=== PATIENT | male | born 1970 | race Caucasian/White ===

== ENCOUNTER 2016-10-12 11:20 | Inpatient (IN) | payer BC ==
--- NOTE | ~2016-10-12 | HP ---
History And Physical [address] [place]. [address] NAME: SAMANTHA DELACRUZ : 72 STATUS : ADM IN PAT#: [id number] AGE: 46 ADM/REG DATE : 10/12/16 MR#: [id number] REPORT SERV DATE: 10/12/16 DICTATED BY: JARON CLAIRE DATE: 10/12/16 REPORT STATUS : Draft TRANSCRIBED BY: MODL DATE: 10/12/16 DATE OF ADMISSION: 10/12/2016 INDICATION: Heart failure. HISTORY: The patient is a 46-year-old white male with an underlying dilated cardiomyopathy who began to experience increasing shortness of breath, edema, and chest discomfort. He presented to the emergency room for further evaluation and therapy. CURRENT HOME MEDICATIONS: Bumex 4 mg b.i.d., carvedilol 6.25 b.i.d., dobutamine drip, furosemide 40 b.i.d., oxycodone 15 four times a day, oxymorphone 20 q.12, potassium 20 b.i.d. ALLERGIES OR INTOLERANCES: Pregabalin. SOCIAL HISTORY: . Previous history of tobacco use. Negative for alcohol use. FAMILY HISTORY: Negative for coronary artery disease at young age. PAST MEDICAL HISTORY/REVIEW OF SYSTEMS: Positive for contrast-induced nephropathy with a history of acute renal failure, presently with reasonable renal function. He has a history of peripheral neuropathy and chronic pain. He has a bicuspid aortic valve and he has a history of bacterial endocarditis. He has a history of spinal stenosis. He underwent aortic root replacement on 01/10/[address] Conn with a 26 mm [employer] homograft. He also had tricuspid repair at that time with an annuloplasty ring. Postoperatively, he was given a diagnosis of diabetes mellitus, although he is not taking any antidiabetic medication at this time. Apparently at the time of his tricuspid valve annuloplasty, he had a closure of VSD. He had a single-lead pacemaker implanted on 08/30/[address] Garsia. He has been on chronic dobutamine infusion for the past several years, managed by Dr. Campbell. Recently, he was evaluated at [facility]. The results of that evaluation are not clear, although the patient states they were going to add some additional leads to his defibrillator and try to get him off his chronic dobutamine infusion. He has not been evaluated at [facility] that he is aware of. PHYSICAL EXAMINATION: GENERAL: A 46-year-old white male. VITAL SIGNS: Blood pressure 120/69, pulse 69 and regular, respirations 32. SKIN: No xanthelasmas. HEENT: JVD is elevated. CHEST: There are basilar crackles. CARDIAC: S1 normal, S2 singular, soft S3. ABDOMEN: Without tenderness. EXTREMITIES: +2 edema. History And Physical [address] [address] NAME: SAMANTHA DELACRUZ : 72 STATUS : ADM IN [facility]#: [id number] AGE: 46 ADM/REG DATE : 10/12/16 MR#: [id number] REPORT SERV DATE: 10/12/16 DICTATED BY: JARON CLAIRE DATE: 10/12/16 REPORT STATUS : Draft TRANSCRIBED BY: MODL DATE: 10/12/16 NEUROLOGIC: No focal deficits. LABORATORY VALUES: BUN 22, creatinine 1.13. Troponin is 0.3, although he has evidence of chronically elevated troponins throughout the last several years with levels running in the 0.2 range. His BNP is 1618, which is higher than usual, although in 2009, he had levels at 1831. White count 6.9, hemoglobin 14.2, platelets 76,000. Baseline ECG shows sinus rhythm with a left bundle branch block pattern. No acute repolarization changes present. IMPRESSION: A 46-year-old white male with nonischemic cardiomyopathy and acute on chronic systolic failure. The elevation in troponin is likely due to demand ischemia. He will be admitted for further therapy, diuresis, and at this time, we will try to sort through the [facility] evaluation. Note that in 2012, his QRS duration was only 112 msec, whereas on 10/12/2016, it was read out at 176 msec. DW/MODL Jaron Claire M.D. / [id number] CC: Jaron Claire M.D. [facility]
--- NOTE | ~2016-10-12 | CN ---
Consultation Report [facility] [address] [place]. [address] NAME: SAMANTHA DELACRUZ : 72 STATUS : ADM IN [facility]#: [id number] AGE: 46 ADM/REG DATE : 10/12/16 MR#: [id number] REPORT SERV DATE: 10/15/16 DICTATED BY: MYRIAM CESPEDES II DATE: 10/15/16 REPORT STATUS : Draft TRANSCRIBED BY: SOPHIA DATE: 10/15/16 CONSULTATION DATE OF CONSULTATION: 10/15/2016 CHIEF COMPLAINT: Low back pain. 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 He is unsure if it seeded his lumbar spine, but nevertheless he is reporting a severe history of low back pain which is worsening. It wake him up from his sleep. He recently had an MRI done at [facility] in [place], [place]. He reports some radiating pain in the buttocks and legs. PAST MEDICAL HISTORY: History of cardiomyopathy with ICD placement. He also had aortic root replacement. He also has a history of diabetes. REVIEW OF SYSTEMS: Noncontributory. MEDICATIONS: Please see the [facility] for his list. PHYSICAL EXAMINATION: GENERAL: Reveals a gentleman in no acute distress. He is awake, alert, oriented. NECK: Supple. CHEST: Reveals no stridor on inspiration or expiration. CARDIOVASCULAR: Regular rate and rhythm when I palpate the radial pulse. ABDOMEN: Soft. EXTREMITIES: He does have significant edema in the lower extremities. BACK: Reveals no scars, deformities, or masses. IMPRESSION AND PLAN: Low back pain which is significantly worsening. He has had a recent MRI in [place]. We will try and obtain this and have it pushed to the [facility]. Given his hospitalization situation, I suspect he will need outpatient followup for potential further definitive care. Although he is not the ideal surgical candidate obviously, but he is in severe pain and appears legitimate in that detection of his pain. HERNAN/SOPHIA Myriam Cespedes II, M.D. Consultation Report [facility] [address] [place]. [address] NAME: SAMANTHA DELACRUZ : 72 STATUS : ADM IN PAT#: [id number] AGE: 46 ADM/REG DATE : 10/12/16 MR#: [id number] REPORT SERV DATE: 10/15/16 DICTATED BY: MYRIAM CESPEDES II DATE: 10/15/16 REPORT STATUS : Draft TRANSCRIBED BY: MODL DATE: 10/15/16 / [id number] CC: Jaron Claire M.D.
--- NOTE | ~2016-10-12 | DS ---
Discharge Summary [facility] [address] [place]. [address] NAME: SAMANTHA DELACRUZ : 72 STATUS : DIS IN PAT#: [id number] AGE: 46 ADM/REG DATE : 10/12/16 MR#: [id number] REPORT SERV DATE: 10/31/16 DICTATED BY: BAKARITANNER KOREY DATE: 10/30/16 REPORT STATUS : Draft TRANSCRIBED BY: MODAdolfo DATE: 10/30/16 Data Collection from hospitalization DISCHARGE DIAGNOSES: 1. Congestive heart failure. 2. Ventricular fibrillation. 3. Chronic kidney disease. 4. Diabetes. 5. Chronic obstructive pulmonary disease. 6. Former tobacco use. 7. Peripheral neuropathy. 8. History of cardiomyopathy with ICD placement. CONSULTATIONS: Dr. David Cespedes, Dr. Korey Das. PROCEDURES PERFORMED: 1. ICD implantation, 10/14/2016. 2. CT scan of the abdomen and pelvis without contrast, 10/23/2016. 3. Overnight oximetry study, 10/16/2016. MEDICATIONS: Pacerone as instructed, aspirin 324 mg daily, Coreg 12.5 mg twice a day, Roxicodone 15 mg four times a day, Opana ER 20 mg every 12 hours, Klor-Con 20 mEq twice a day, and Demadex 50 mg daily. CONDITION AT DISCHARGE: Stable. DISPOSITION: The patient was discharged home on a low-sodium, soft diet with 2500 mL fluid restriction and activities as instructed. He would follow up with Dr. Osei Seaman, 11/07/2016. He would follow up with Dr. Juice Bernardo as instructed. He would follow up in the [facility] in [place], 11/20/2016 and would undergo an outpatient sleep study as instructed. HOSPITAL COURSE: This is a 46-year-old man, who has underlying dilated cardiomyopathy. He began to experience increasing shortness of breath, edema, and chest discomfort. He presented to the emergency room at this time. Creatinine level was 1.13, troponin was 0.3, although he does have evidence of chronically elevated troponins over the past several years with levels running in the 0.2 range. Baseline ECG showed sinus rhythm with left bundle- branch block pattern. No acute repolarization changes were present. He was admitted to the hospital at this time for further evaluation and treatment. Upon admission, the patient was felt to have nonischemic cardiomyopathy with acute-on- chronic systolic failure. The risks and benefits of extracting the ICD lead were discussed with upgrade to a biventricular ICD. The patient agreed to proceed. On 10/14/2016, the patient was taken to the operating room, where he underwent the above-mentioned procedure. He tolerated this well and there were no complications. A PICC line was inserted. Postop device check was performed and all measurements were within normal limits. On the , slow diuresis was being performed. He did have some back pain. He was still slightly overloaded. Creatinine was 2.41. Diuresis continued. He was seen in consultation by Dr. Brandon La [address] [address] NAME: SAMANTHA DELACRUZ : 72 STATUS : DIS IN PAT#: [id number] AGE: 46 ADM/REG DATE : 10/12/16 MR#: [id number] REPORT SERV DATE: 10/31/16 DICTATED BY: TANNER CLAIRE DATE: 10/30/16 REPORT STATUS : Draft TRANSCRIBED BY: SOPHIA DATE: 10/30/16 David Cespedes regarding his low back pain. The patient reports having a history of a severe blood infection. He was unsure if it seeded his lumbar spine, but nevertheless he reports a severe history of low back pain, which was worsening. It wakes him up from sleep. He recently had an MRI performed at [facility] in [place], [place]. He did report some pain radiating into the buttocks and legs. We were going to try and obtain the MRI. Given his hospitalization situation, it was suspected that he would need outpatient followup for potential further definitive care, although he is not an ideal surgical candidate obviously, but he is in severe pain and it appears legitimate in that detection of his pain. On 10/16/2016, he still had some back and lower extremity pain. He still had some fluid overload. Creatinine was 2.31. An overnight oximetry study was performed. He has an ejection fraction of 15%. He was felt to have systolic and diastolic congestive heart failure exacerbation. Bumex drip continued. On the , he still complained of back and leg pain. Diuresis continued. On the , his diuretics were held. The patient does have a painful periumbilical hernia. He had some hypokalemia. [employer] device check was performed and there was normal device function. On 10/22/2016, he was seen by Dr. Korey Das. The patient does have a small umbilical hernia. A CT scan of the abdomen and pelvis without contrast was requested. Discharge planning was performed. Fluid repletion was performed. Creatinine was 3.18. On 10/23/2016, he was alert and cooperative. Creatinine was 2.67. Discharge instructions were given. A CT scan of the abdomen and pelvis without contrast had been performed. Due to his improved and stable condition, he was discharged home with the above-stated instructions. Information collected by: Yaneth Keita I submit the above information as my discharge summary. TG/MODL Tanner Claire M.D. / [id number] CC: Rosa Serrano II, M.D. John Gwin Jr., M.D.
--- NOTE | ~2016-10-12 | PUL ---
[address] [place]. [address] NAME: SAMANTHA DELACRUZ : 72 STATUS : ADM IN [facility]#: [id number] AGE: 46 ADM/REG DATE : 10/12/16 MR#: [id number] REPORT SERV DATE: 10/18/16 DICTATED BY: SONIA RODRIGUEZ IV DATE: 10/17/16 REPORT STATUS : Draft TRANSCRIBED BY: MODL DATE: 10/17/16 PULMONARY FUNCTION TEST OVERNIGHT OXIMETRY. FINDINGS: Study is performed on room air. Four hours and 58 minutes of data available for review. The mean oxygen saturation was 89%. The lowest scored saturation is 75%. There were several periods of loss of data collection. The patient spent one hour and 42 minutes with oxygen saturations less than 88%. There was a pattern of oxygen saturation variation of sawtooth pattern that varied by significantly more than 4% that occurred throughout the study. IMPRESSION: Severe nocturnal hypoxemia on room air. There is a pattern consistent with obstructive sleep apnea that would be very severe based on a desaturation index of 75 per hour. Because of the low mean oxygen saturation, I would suggest placing the patient on 2 L of supplemental oxygen and obtaining a formal polysomnography as soon as possible. CHELSEY/SOPHIA Sonia Rodriguez IV, M.D. / [id number] CC: Jaron Claire M.D.
[~2016-10-12 11:20] MED LIST: CIP5 PO; COREG12 PO; COREG6 PO; DIL4TAB PO; HYDROCHLOROT25 MG PO; L20 PO; L40 PO; LORTAB10 PO; PRIN5 PO; ROXICODONE30 MG PO
[2016-10-12 14:40] LABS: BASOPHILS 0.7 %; BASOPHILS ABSOLUTE 0.05 10/3/uL (0.0-0.16); EOSINOPHILS ABSOLUTE 0.21 10/3/uL (0.0-0.53); ER CBC TAT 0 Hrs 18 Mins; HEMATOCRIT 41.4 % (40.0-51.0); HEMOGLOBIN 14.2 g/dL (13.6-17.8); IMMATURE GRANULOCYTES 0.7 %; IMMATURE GRANULOCYTES ABSOLUTE 0.05 10/3/uL (0.0-0.11); LYMPHOCYTES 11.4 %; LYMPHOCYTES ABSOLUTE 0.79 10/3/uL (0.67-4.30); MEAN CORPUS HGB CONC 34.3 g/dL (32.0-36.0); MEAN CORPUSCULAR VOLUME 84.7 fL (80-100); MONOCYTES 13.5 %; MONOCYTES ABSOLUTE 0.93 10/3/uL (0.21-1.20); NEUTROPHILS 70.7 %; NEUTROPHILS ABSOLUTE 4.87 10/3/uL (2.02-8.40); RED CELL COUNT 4.89 10/6/uL (4.7-6.1); WHITE BLOOD CELLS 6.9 10/3/uL (4.5-10.5)
[2016-10-12 14:44] LABS: MANUAL DIFF NO %; PLATELET COUNT 76 10/3/uL (150-400); RBC DISTRIBUTION WIDTH 17.9 % (12.0-16.0)
[2016-10-12 14:50] LABS: ALBUMIN 3.7 G/DL (3.5-5.0); ALKALINE PHOSPHATASE 132 U/L (45-117); BUN (BLOOD UREA NITROGEN) 22 MG/DL (6-23); CALCIUM, SERUM 8.9 MG/DL (8.5-10.4); CHEST PAIN PROFILE TAT 0 Hrs 28 Mins; CHLORIDE, SERUM 102 MMOL/L (96-112); CO2 (CARBON DIOXIDE) 26 MMOL/L (24-34); CREATININE 1.13 MG/DL (0.70-1.30); DIRECT BILIRUBIN 0.9 MG/DL (0.0-0.4); GFR AFRICAN AMERICAN 90 ML/MIN (>=60); GFR NON AFRICAN AMERICAN 78 ML/MIN (>=60); GLUCOSE, SERUM 96 MG/DL (60-99); INDIRECT BILIRUBIN(NOT ORDER) 4.3 MG/DL (0.1-0.9); POTASSIUM, SERUM 3.7 MMOL/L (3.5-5.3); SGOT(AST) 27 U/L (5-40); SGPT(ALT) 10 U/L (5-65); SODIUM, SERUM 140 MMOL/L (135-148); TOTAL BILIRUBIN 5.2 MG/DL (0-1.2)
[2016-10-12 14:59] LABS: PARTIAL THROMBO TIME 38.3 SEC (22.5-37.2); PLATELET ESTIMATE DEC (ADEQUATE); RBC MORPHOLOGY NORM (NORMAL)
[2016-10-12 15:00] LABS: INTERNATIONAL NORMAL RATI 1.1 UNITS (-); PROTIME (NOT ORD) 14.5 SEC (12.0-14.5)
[2016-10-12 15:02] LABS: D-DIMER QUANTITATIVE 0.71 ug/mLFEU (< 0.50)
[2016-10-12] MEDS ORDERED: COREG12 PO (15:38)
[2016-10-12] MEDS ORDERED: L40 PO (15:38)
[2016-10-12] MEDS ORDERED: KLOR-CON M2020 MEQ PO (15:39)
[2016-10-12] MEDS ORDERED: BUM2 PO (15:39)
[2016-10-12] MEDS ORDERED: OXYCOD PO (15:40)
[2016-10-12] MEDS ORDERED: OPANA ER20 MG PO (15:41)
[2016-10-12] MEDS ORDERED: [UNRECOGNIZED DRUG - CODE] IV (15:49)
[2016-10-12 16:07] LABS: CPK 64 U/L (0-200)
[2016-10-12 16:08] LABS: CK-MB 1.4 NG/ML
[2016-10-12 18:58] LABS: LACTATE 1.6 MMOL/L (0.3-2.4)
[2016-10-13 02:35] LABS: BASOPHILS ABSOLUTE 0.06 10/3/uL (0.0-0.16); EOSINOPHILS 3.7 %; EOSINOPHILS ABSOLUTE 0.23 10/3/uL (0.0-0.53); HEMATOCRIT 38.4 % (40.0-51.0); HEMOGLOBIN 12.9 g/dL (13.6-17.8); IMMATURE GRANULOCYTES 0.6 %; IMMATURE GRANULOCYTES ABSOLUTE 0.04 10/3/uL (0.0-0.11); LYMPHOCYTES 18.7 %; LYMPHOCYTES ABSOLUTE 1.16 10/3/uL (0.67-4.30); MANUAL DIFF NO %; MEAN CORPUS HGB CONC 33.6 g/dL (32.0-36.0); MEAN CORPUSCULAR HEMOGLOB 29.1 pg (26.0-34.0); MEAN CORPUSCULAR VOLUME 86.5 fL (80-100); MONOCYTES 11.3 %; NEUTROPHILS 64.7 %; NEUTROPHILS ABSOLUTE 4.02 10/3/uL (2.02-8.40); PLATELET COUNT 87 10/3/uL (150-400); RBC DISTRIBUTION WIDTH 17.8 % (12.0-16.0); RED CELL COUNT 4.44 10/6/uL (4.7-6.1); WHITE BLOOD CELLS 6.2 10/3/uL (4.5-10.5)
[2016-10-13 02:48] LABS: ALBUMIN 3.4 G/DL (3.5-5.0); CALCIUM, SERUM 8.1 MG/DL (8.5-10.4); CHLORIDE, SERUM 104 MMOL/L (96-112); CO2 (CARBON DIOXIDE) 28 MMOL/L (24-34); CREATININE 1.59 MG/DL (0.70-1.30); GFR AFRICAN AMERICAN 60 ML/MIN (>=60); GFR NON AFRICAN AMERICAN 52 ML/MIN (>=60); GLUCOSE, SERUM 95 MG/DL (60-99); HDL CHOLESTEROL 28 MG/DL (> 39); PHOSPHORUS, SERUM 4.5 MG/DL (2.5-4.5); POTASSIUM, SERUM 4.4 MMOL/L (3.5-5.3); SGPT(ALT) 12 U/L (5-65); SODIUM, SERUM 141 MMOL/L (135-148)
[2016-10-13 02:49] LABS: BUN (BLOOD UREA NITROGEN) 30 MG/DL (6-23); CHOL/HDL RATIO(NOT ORDER) 4.9 (0-5); CHOLESTEROL 136 MG/DL (< 200); LDL CHOLESTEROL 90 MG/DL (< 130); NON-HDL CHOLESTEROL 108 MG/DL (< 160); TRIGLYCERIDE 92 MG/DL (< 150)
[2016-10-13 03:00] LABS: ANISOCYTOSIS 1+ (5-10/OIF) (0-5/OIF); PLATELET ESTIMATE DEC (ADEQUATE)
[2016-10-13 10:19] LABS: HEPATITIS B SURFACE ANTIGEN NON-REACTIVE (NON-REACT)
[2016-10-13 10:47] LABS: HEPATITIS B CORE AB IGM NON-REACTIVE (NON-REAC)
[2016-10-13 10:49] LABS: HEP A ANTIBODY IGM NON-REACTIVE (NON-REACT)
[2016-10-14 09:38] LABS: BASOPHILS 0.9 %; BASOPHILS ABSOLUTE 0.08 10/3/uL (0.0-0.16); EOSINOPHILS 6.8 %; HEMATOCRIT 36.6 % (40.0-51.0); HEMOGLOBIN 12.3 g/dL (13.6-17.8); IMMATURE GRANULOCYTES 0.8 %; IMMATURE GRANULOCYTES ABSOLUTE 0.07 10/3/uL (0.0-0.11); LYMPHOCYTES 16.3 %; LYMPHOCYTES ABSOLUTE 1.45 10/3/uL (0.67-4.30); MEAN CORPUS HGB CONC 33.6 g/dL (32.0-36.0); MEAN CORPUSCULAR HEMOGLOB 28.7 pg (26.0-34.0); MEAN CORPUSCULAR VOLUME 85.5 fL (80-100); MONOCYTES ABSOLUTE 1.33 10/3/uL (0.21-1.20); NEUTROPHILS 60.2 %; NEUTROPHILS ABSOLUTE 5.34 10/3/uL (2.02-8.40); PLATELET COUNT 79 10/3/uL (150-400); RBC DISTRIBUTION WIDTH 17.9 % (12.0-16.0); RED CELL COUNT 4.28 10/6/uL (4.7-6.1)
[2016-10-14 09:39] LABS: MANUAL DIFF NO %; WHITE BLOOD CELLS 8.9 10/3/uL (4.5-10.5)
[2016-10-14 09:44] LABS: CALCIUM, SERUM 8.6 MG/DL (8.5-10.4); CHLORIDE, SERUM 102 MMOL/L (96-112); GFR AFRICAN AMERICAN 36 ML/MIN (>=60); GFR NON AFRICAN AMERICAN 31 ML/MIN (>=60); GLUCOSE, SERUM 97 MG/DL (60-99); POTASSIUM, SERUM 4.2 MMOL/L (3.5-5.3)
[2016-10-14 09:45] LABS: BUN (BLOOD UREA NITROGEN) 52 MG/DL (6-23); CO2 (CARBON DIOXIDE) 23 MMOL/L (24-34); CREATININE 2.41 MG/DL (0.70-1.30); SODIUM, SERUM 134 MMOL/L (135-148)
[2016-10-14 09:55] LABS: ANISOCYTOSIS 1+ (5-10/OIF) (0-5/OIF); PLATELET ESTIMATE DEC (ADEQUATE); TOXIC GRANULATION 1+
[2016-10-14 09:56] LABS: POIKILOCYTOSIS 1+ (5-10/OIF) (0-5/OIF); POLYCHROMASIA 1+ (2-5/OIF) (0-1/OIF)
[2016-10-15 07:48] LABS: HEPATITIS C ANTIBODY NON-REACTIVE (NON-REACT)
[2016-10-15 09:00] LABS: ALBUMIN 3.6 G/DL (3.5-5.0); BUN (BLOOD UREA NITROGEN) 52 MG/DL (6-23); CHLORIDE, SERUM 96 MMOL/L (96-112); CO2 (CARBON DIOXIDE) 28 MMOL/L (24-34); CREATININE 2.31 MG/DL (0.70-1.30); GFR AFRICAN AMERICAN 38 ML/MIN (>=60); GFR NON AFRICAN AMERICAN 33 ML/MIN (>=60); GLUCOSE, SERUM 316 MG/DL (60-99); PHOSPHORUS, SERUM 4.1 MG/DL (2.5-4.5); POTASSIUM, SERUM 4.1 MMOL/L (3.5-5.3); SODIUM, SERUM 133 MMOL/L (135-148)
[2016-10-16 08:17] LABS: ALBUMIN 3.6 G/DL (3.5-5.0); BUN (BLOOD UREA NITROGEN) 51 MG/DL (6-23); CALCIUM, SERUM 7.8 MG/DL (8.5-10.4); CHLORIDE, SERUM 96 MMOL/L (96-112); CO2 (CARBON DIOXIDE) 31 MMOL/L (24-34); CREATININE 1.96 MG/DL (0.70-1.30); GFR AFRICAN AMERICAN 46 ML/MIN (>=60); GFR NON AFRICAN AMERICAN 40 ML/MIN (>=60); PHOSPHORUS, SERUM 3.7 MG/DL (2.5-4.5); POTASSIUM, SERUM 3.8 MMOL/L (3.5-5.3); SODIUM, SERUM 134 MMOL/L (135-148)
[2016-10-16 08:19] LABS: GLUCOSE, SERUM 179 MG/DL (60-99)
[2016-10-17 07:00] LABS: CALCIUM, SERUM 8.7 MG/DL (8.5-10.4); CHLORIDE, SERUM 92 MMOL/L (96-112); CREATININE 2.25 MG/DL (0.70-1.30); GFR AFRICAN AMERICAN 39 ML/MIN (>=60); GFR NON AFRICAN AMERICAN 34 ML/MIN (>=60); PHOSPHORUS, SERUM 3.9 MG/DL (2.5-4.5); SODIUM, SERUM 133 MMOL/L (135-148)
[2016-10-17 07:01] LABS: BUN (BLOOD UREA NITROGEN) 58 MG/DL (6-23); CO2 (CARBON DIOXIDE) 36 MMOL/L (24-34); GLUCOSE, SERUM 114 MG/DL (60-99); POTASSIUM, SERUM 4.3 MMOL/L (3.5-5.3)
[2016-10-20 23:34] LABS: GFR AFRICAN AMERICAN 30 ML/MIN (>=60); GFR NON AFRICAN AMERICAN 26 ML/MIN (>=60); GLUCOSE, SERUM 108 MG/DL (60-99); SODIUM, SERUM 128 MMOL/L (135-148)
[2016-10-20 23:43] LABS: POTASSIUM, SERUM 2.5 MMOL/L (3.5-5.3)
[2016-10-20 23:44] LABS: BUN (BLOOD UREA NITROGEN) 90 MG/DL (6-23); CHLORIDE, SERUM 81 MMOL/L (96-112); CO2 (CARBON DIOXIDE) 43 MMOL/L (24-34); CREATININE 2.79 MG/DL (0.70-1.30)
[2016-10-21 00:50] LABS: HEMATOCRIT 38.1 % (40.0-51.0); MEAN CORPUS HGB CONC 34.1 g/dL (32.0-36.0); MEAN CORPUSCULAR HEMOGLOB 29.5 pg (26.0-34.0); MEAN CORPUSCULAR VOLUME 86.6 fL (80-100); RBC DISTRIBUTION WIDTH 17.8 % (12.0-16.0)
[2016-10-21 00:51] LABS: MANUAL DIFF YES %; PLATELET COUNT 140 10/3/uL (150-400)
[2016-10-21 01:10] LABS: ANISOCYTOSIS 1+ (5-10/OIF) (0-5/OIF); BAND NEUTROPHILS 10 %; BASOPHILS 1 %; BASOPHILS ABSOLUTE (CALC) 0.13 10/3/uL (0.0-0.16); EOSINOPHILS 3 %; EOSINOPHILS ABSOLUTE (CALC) 0.39 10/3/uL (0.0-0.53); IMMATURE GRANS ABSOLUTE (CALC) 0.13 10/3/uL (0.0-0.11); LYMPHOCYTES 11 %; LYMPHOCYTES ABSOLUTE (CALC) 1.43 10/3/uL (0.67-4.30); METAMYELOCYTES 1 %; MONOCYTES 8 %; MONOCYTES ABSOLUTE (CALC) 1.04 10/3/uL (0.21-1.20); NEUTROPHILS ABSOLUTE (CALC) 9.88 10/3/uL (2.02-8.40); PLATELET ESTIMATE SLT DEC (ADEQUATE); SEGMENTED NEUTROPHIL (0) 66 %; TOTAL NUCLEATED CELLS 100
[2016-10-21 10:12] LABS: BUN (BLOOD UREA NITROGEN) 90 MG/DL (6-23); CALCIUM, SERUM 9.4 MG/DL (8.5-10.4); CHLORIDE, SERUM 80 MMOL/L (96-112); CO2 (CARBON DIOXIDE) 39 MMOL/L (24-34); CREATININE 2.73 MG/DL (0.70-1.30); GFR AFRICAN AMERICAN 31 ML/MIN (>=60); GFR NON AFRICAN AMERICAN 27 ML/MIN (>=60); SODIUM, SERUM 129 MMOL/L (135-148)
[2016-10-21 10:13] LABS: GLUCOSE, SERUM 154 MG/DL (60-99); POTASSIUM, SERUM 2.6 MMOL/L (3.5-5.3)
[2016-10-22 06:35] LABS: ALBUMIN 3.8 G/DL (3.5-5.0); CALCIUM, SERUM 9.6 MG/DL (8.5-10.4); CHLORIDE, SERUM 83 MMOL/L (96-112); CO2 (CARBON DIOXIDE) 39 MMOL/L (24-34); CREATININE 3.18 MG/DL (0.70-1.30); GFR AFRICAN AMERICAN 26 ML/MIN (>=60); GFR NON AFRICAN AMERICAN 22 ML/MIN (>=60); GLUCOSE, SERUM 147 MG/DL (60-99); PHOSPHORUS, SERUM 3.9 MG/DL (2.5-4.5); POTASSIUM, SERUM 3.3 MMOL/L (3.5-5.3); SODIUM, SERUM 130 MMOL/L (135-148)
[2016-10-22 06:39] LABS: BUN (BLOOD UREA NITROGEN) 99 MG/DL (6-23)
[2016-10-23 06:33] LABS: ALBUMIN 3.6 G/DL (3.5-5.0); BUN (BLOOD UREA NITROGEN) 91 MG/DL (6-23); CALCIUM, SERUM 9.4 MG/DL (8.5-10.4); CHLORIDE, SERUM 90 MMOL/L (96-112); CO2 (CARBON DIOXIDE) 33 MMOL/L (24-34); CREATININE 2.67 MG/DL (0.70-1.30); GFR AFRICAN AMERICAN 32 ML/MIN (>=60); GFR NON AFRICAN AMERICAN 28 ML/MIN (>=60); GLUCOSE, SERUM 173 MG/DL (60-99); PHOSPHORUS, SERUM 3.1 MG/DL (2.5-4.5); POTASSIUM, SERUM 3.7 MMOL/L (3.5-5.3); SODIUM, SERUM 132 MMOL/L (135-148)
[2016-10-23] MEDS ORDERED: ASAB PO (16:53)
[2016-10-23] MEDS ORDERED: PACERONE200 MG (16:54)
[2016-10-23] MEDS ORDERED: DEMA100 PO (17:09)
[2017-02-23] MEDS ORDERED: OXYCOD PO (19:29)
[2017-02-23] MEDS ORDERED: OPANA ER15 MG PO (19:29)
[2017-02-23] MEDS ORDERED: COREG6 PO (19:30)
[2017-02-23] MEDS ORDERED: CORDARONE PO (19:30)
[2017-02-23] MEDS ORDERED: KDUR20 PO (19:31)
[2017-02-23] MEDS ORDERED: DEMA100 PO (19:31)
[2017-02-23] MEDS ORDERED: MOTRIN IB200 MG PO (19:43)
== END 2016-10-23 20:25 | disposition home or self-care (01) | DRG 226 ==
LOC: ER 11:20 → ER/OF 18:17 → 7NO 18:24
PROVIDERS: Internal Medicine Cardiovascular Disease; Internal Medicine Clinical Cardiac Electrophysiology; Nurse Practitioner
PROC: 0JH609Z Insertion of Cardiac Resynchronization Defibrillator Pulse Generator into Chest Subcutaneous Tissue and Fascia, Open Approach (ICD-10-PCS; 2016-10-14)
PROC: 02HK3KZ Insertion of Defibrillator Lead into Right Ventricle, Percutaneous Approach (ICD-10-PCS; 2016-10-14)
PROC: 02H43KZ Insertion of Defibrillator Lead into Coronary Vein, Percutaneous Approach (ICD-10-PCS; 2016-10-14)
PROC: 0JPT0PZ Removal of Cardiac Rhythm Related Device from Trunk Subcutaneous Tissue and Fascia, Open Approach (ICD-10-PCS; 2016-10-14)
PROC: 02PA0MZ Removal of Cardiac Lead from Heart, Open Approach (ICD-10-PCS; 2016-10-14)
PROC: 02H63KZ Insertion of Defibrillator Lead into Right Atrium, Percutaneous Approach (ICD-10-PCS; 2016-10-14)
PROC: 02HV33Z Insertion of Infusion Device into Superior Vena Cava, Percutaneous Approach (ICD-10-PCS; principal; 2016-10-19)
PROC: 4A02X4A Measurement of Cardiac Electrical Activity, Guidance, External Approach (ICD-10-PCS; 2016-10-19)
DX: I50.23 Acute on chronic systolic (congestive) heart failure (principal); I49.01 Ventricular fibrillation; I42.9 Cardiomyopathy, unspecified; Q23.1 Congenital insufficiency of aortic valve; Z95.810 Presence of automatic (implantable) cardiac defibrillator; M54.5 Low back pain; I44.7 Left bundle-branch block, unspecified; N18.9 Chronic kidney disease, unspecified; G47.33 Obstructive sleep apnea (adult) (pediatric)
CPT/HCPCS: 33225; 33241; 33244; 33249; 36569; 71010; 74176; 80048; 80061; 80069; 80074; 80076; 82272; 82550; 82553; 83605; 83690; 83735; 83880; 84132; 84460; 84484; 85025; 85379; 85610; 85730; 87040; 93005; 94762; 96374; 96375; 99285; A9270-GY; C1751; C1769; C1773; C1882; C1887; C1892; C1898; C1900; G0463; J0690; J1170; J2250; J2370; J2405; J2997; J3010; J3480; Q9967